=== PATIENT | male | born 1930 | race Caucasian/White ===

== ENCOUNTER 2018-10-27 11:12 | Emergency (ER) | payer MEDICARE ==
[~2018-10-27] VITALS: Ht 172.7 cm; Wt 67.6 kg
[~2018-10-27 11:12] MED LIST: FELO5TAB4 PO; MIRT45TA83 PO; TAMS0.4C34 PO; VENL100T4 PO
[2018-10-27] MEDS ORDERED: ACETAMINOPHEN 325 MG TABLET PO ONE (11:30)
--- NOTE | 2018-10-27 11:30 | NUR ---
PT UNABLE TO RECALL CURRENT MEDS.
[2018-10-27] MEDS ORDERED: ACETAMINOPHEN 325 MG TABLET ONE (11:41)
--- NOTE | 2018-10-27 11:41 | NUR ---
PT IS IN ROOM #2B. DR ARAUJO EVALUATED THE PT.
--- NOTE | 2018-10-27 15:12 | NUR ---
DR ARAUJO TALKED TO NEUROLOGIST DR TOMAS ABOUT PT's TRANSFER TO [facility]. DR TOMAS ACCEPTED THE PT. [facility] WAS CALLED, TALKED TO ABY ([phone] HER DIRECT PHONE NUMBER). PT'S TRANSFER INFORMATION WAS FAXED TO TRANSFER CENTER. (FAX # [phone]).
[2018-10-27 15:17] LABS: BASOPHILS % (AUTO) 0.4 % (0.0-2.0); EOSINOPHILS # (AUTO) 0.2 K/uL (0.0-0.7); EOSINOPHILS % (AUTO) 2.3 % (0.0-7.0); HEMATOCRIT 36.5 % (36.7-47.1); HEMOGLOBIN 11.7 g/dL (12.5-16.3); LYMPHOCYTES # (AUTO) 1.2 K/uL (20.0-40.0); LYMPHOCYTES % (AUTO) 13.4 % (20.5-51.5); MEAN CORPUSCULAR HGB CONC 32 g/dL (32.5-36.3); MEAN CORPUSCULAR VOLUME 93.3 fL (73.0-96.2); MONOCYTES # (AUTO) 1.1 K/uL (2.0-10.0); MONOCYTES % (AUTO) 11.9 % (0.0-11.0); NEUTROPHILS # (AUTO) 6.5 K/uL (1.8-8.9); PLATELET COUNT (AUTO) 159 K/uL (152-348); RED BLOOD CELL COUNT(AUTO) 3.91 MIL/uL (4.06-5.63); WHITE BLOOD COUNT (AUTO) 9.1 K/uL (3.6-10.2)
[2018-10-27 15:30] LABS: ALANINE AMINOTRANSFERASE 20 U/L (16-63); ALKALINE PHOSPHATASE 125 U/L (50-136); ASPARTATE AMINOTRANSFERASE 20 U/L (15-37); BILIRUBIN,DIRECT 0.1 mg/dL (0.0-0.2); BILIRUBIN,TOTAL 0.4 mg/dL (0.2-1.0); CARBON DIOXIDE 27 mmol/L (21-32); CHLORIDE 103 mmol/L (98-107); CREATININE 1.8 mg/dL (0.6-1.3); GLUCOSE 116 mg/dL (74-106); POTASSIUM 4.8 mmol/L (3.5-5.1); TOTAL PROTEIN, SERUM 7.4 g/dL (6.4-8.2); UREA NITROGEN, BLOOD 24 mg/dL (7-18)
--- NOTE | 2018-10-27 17:15 | NUR ---
[facility] MONITOR TECHNICIAN [facility]AN CALLED WITH TRANSFER INFORMATION. PT IS GOING TO ORTHOPEDIC FLOOR , ROOM #[id number]. ADMITTING MD IS DR RODRIGUEZ. PHONE NUMBER FOR REPORT IS [phone]. [facility] WAS CALLED FOR PT's TRANSFER . ESSENCE IS 30 MINUTES.
--- NOTE | 2018-10-27 17:30 | NUR ---
PT WAS TRANSFERED TO [facility] ORTHO FLOOR, ROOM #[id number] VIA [facility]. REPORT WAS GIVEN TO DAYRON CORONEL FROM [facility].
== END 2018-10-27 17:35 | disposition short-term general hospital (02) ==
LOC: ER 11:12
DX: S12.100A Unspecified displaced fracture of second cervical vertebra, initial encounter for closed fracture (principal); S00.81XA Abrasion of other part of head, initial encounter; S00.31XA Abrasion of nose, initial encounter; I10 Essential (primary) hypertension; K21.9 Gastro-esophageal reflux disease without esophagitis; Z79.899 Other long term (current) drug therapy; W06.XXXA Fall from bed, initial encounter; Y93.89 Activity, other specified; Y92.89 Other specified places as the place of occurrence of the external cause; Y99.8 Other external cause status
CPT/HCPCS: 36415; 70450; 70486; 72125; 85025; 93005; A4663